=== PATIENT | male | born 1935 | race Caucasian/White ===

== ENCOUNTER 2018-04-12 13:18 | Emergency (ER) | payer OTHER, MEDICAID ==
[~2018-04-12] VITALS: Ht 180.3 cm; Wt 84.8 kg
[2018-04-12 13:42] VITALS: Ht 180.3 cm; Wt 84.8 kg
[2018-04-12 15:45] VITALS: BP 154/85
== END 2018-04-12 15:45 | disposition home or self-care (01) ==
LOC: ED 13:18
DX: J40 Bronchitis, not specified as acute or chronic (principal); M54.6 Pain in thoracic spine
CPT/HCPCS: J7512